=== PATIENT | female | born 1965 | race Caucasian/White ===

== ENCOUNTER 2019-02-10 22:43 | Emergency (ER) | payer BC ==
[~2019-02-10] VITALS: Ht 144.8 cm; Wt 59.9 kg
[2019-02-10 22:49] VITALS: Ht 144.8 cm; Wt 59.9 kg
[2019-02-10 23:57] LABS: BASOPHIL % 0.5 % (0-2); PLATELET COUNT 263 x10^3mcL (130-400); RED CELL DISTRIBUTION WIDTH 13.1 % (11.5-14.5)
[2019-02-11 00:06] LABS: CARBON DIOXIDE 30.6 mmol/L (21-32); CHLORIDE SERUM 101 mmol/L (98-107); GFR1 > 60 mL/min; GLUCOSE SERUM 117 mg/dL (74-106); POTASSIUM SERUM 3.7 mmol/L (3.5-5.1); SODIUM SERUM 139 mmol/L (136-145)
[2019-02-11 00:11] LABS: ALBUMIN 4.1 g/dL (3.4-5.0); ALKALINE PHOSPHATASE 80 U/L (46-116); ALT/SGPT 28 U/L (14-59); AST/SGOT 20 U/L (15-37); BILIRUBIN TOTAL 0.8 mg/dL (0.20-1.00); TOTAL PROTEIN, SERUM 7.7 g/dL (6.4-8.2)
[2019-02-11 00:21] LABS: FREE T4 0.86 ng/dL (0.76-1.46); FREE THYROXINE INDEX 2.5 ug/dL (1.4-4.5)
[2019-02-11 00:26] LABS: T3 TOTAL 1.32 ng/mL
[2019-02-11 01:04] VITALS: BP 122/76
== END 2019-02-11 01:04 | disposition home or self-care (01) ==
LOC: ED 22:43
PROVIDERS: Emergency Medicine
DX: H53.9 Unspecified visual disturbance (principal); R53.1 Weakness; R55 Syncope and collapse
CPT/HCPCS: 36415; 84439